=== PATIENT | male | born 1980 | race Caucasian/White ===

== ENCOUNTER 2021-05-10 18:24 | Emergency (ER) | payer SELFPAY ==
[~2021-05-10] VITALS: Ht 182 cm; Wt 102.0 kg
[2021-05-10 18:47] VITALS: BP 145/95
[2021-05-10] MEDS ORDERED: KETOROLAC 30 MG/ML VIAL IVP ONE (19:15)
[2021-05-10] MEDS ORDERED: ORPHENADRINE 60 MG/2 ML (NORFLEX) AMP (ED ONLY) IV ONE (19:15)
--- NOTE | 2021-05-10 19:19 | ED Back Pain ---
General Chief Complaint: Back Problems Stated Complaint: LOW BACK PAIN Nursing Triage Note: PT CO OF LOW BACK PAIN FOR 2 DAYS RATES PAIN10/10. PT STATES ALSO HAS L SIDED ABD PAIN FOR 6 MONTHS. Source of Information: Patient Exam Limitations: No Limitations History of Present Illness Date Seen by Provider: May 10, 2021 Time Seen by Provider: 19:17 Initial Comments To ER with mid thoracic back pain for 2 days that does not radiate. No known injury no cough no shortness of breath. He also has left upper abdominal pain for 6 months no known injury. No bowel changes no urinary symptoms no nausea no vomiting no fever no chills. Has not yet sought care for this. 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 Location: [facility] Timing/Duration: 1-2 Days Severity: Moderate Pain/Injury Location: None Method of Injury: Unknown Associated Symptoms: denies symptoms Allergies and Home Medications Allergies Coded Allergies: No Known Drug Allergies (Unverified , 05/10/21) Patient Home Medication List Home Medication List Reviewed: Yes Review of Systems Constitutional: see HPI EENTM: see HPI Respiratory: no symptoms reported Cardiovascular: no symptoms reported Genitourinary: no symptoms reported Musculoskeletal: see HPI, back pain Skin: no symptoms reported Psychiatric/Neurological: No Symptoms Reported Past Qcoxnue-Qdlgmc-Mutxzq Hx Patient Social History Tobacco Use?: No Substance use?: No Alcohol Use?: No Pt feels they are or have been: No Physical Exam Vital Signs Vital Signs - First Documented 05/10/21 18:47 Temp 36.6 Pulse 82 Resp 18 B/P (MAP) 145/95 (112) Pulse Ox 97 Capillary Refill : Less Than 3 Seconds Height, Weight, BMI Height: '" Weight: lbs. oz. kg; 30.00 BMI Method: General Appearance: No Apparent Distress, WD/WN, Chronically ill, Obese HEENT: PERRL/EOMI, TMs Normal Neck: Full Range of Motion, Normal Inspection Respiratory: No Accessory Muscle Use, No Respiratory Distress Gastrointestinal: Normal Bowel Sounds, Non Tender, Soft Extremity: Normal Capillary Refill Neurologic/Psychiatric: Alert, Oriented x3 Skin: Normal Color, Warm/Dry Progress/Results/Core Measures Results/Orders Lab Results Laboratory Tests Test 05/10/21 19:45 05/10/21 20:06 Range/Units White Blood Count 9.5 4.3-11.0 10^3/uL Red Blood Count 5.05 4.30-5.52 10^6/uL Hemoglobin 15.4 13.3-17.7 g/dL Hematocrit 46 40-54 % Mean Corpuscular Volume 91 80-99 fL Mean Corpuscular Hemoglobin 31 25-34 pg Mean Corpuscular Hemoglobin Concent 34 32-36 g/dL Red Cell Distribution Width 12.3 10.0-14.5 % Platelet Count 314 130-400 10^3/uL Mean Platelet Volume 10.0 9.0-12.2 fL Immature Granulocyte % (Auto) 1 % Neutrophils (%) (Auto) 64 42-75 % Lymphocytes (%) (Auto) 24 12-44 % Monocytes (%) (Auto) 8 0-12 % Eosinophils (%) (Auto) 3 0-10 % Basophils (%) (Auto) 1 0-10 % Neutrophils # (Auto) 6.1 1.8-7.8 10^3/uL Lymphocytes # (Auto) 2.3 1.0-4.0 10^3/uL Monocytes # (Auto) 0.8 0.0-1.0 10^3/uL Eosinophils # (Auto) 0.3 0.0-0.3 10^3/uL Basophils # (Auto) 0.1 0.0-0.1 10^3/uL Immature Granulocyte # (Auto) 0.1 0.0-0.1 10^3/uL Sodium Level 139 135-145 MMOL/L Potassium Level 4.1 3.6-5.0 MMOL/L Chloride Level 102 98-107 MMOL/L Carbon Dioxide Level 27 21-32 MMOL/L Anion Gap 10 5-14 MMOL/L Blood Urea Nitrogen 15 7-18 MG/DL Creatinine 1.05 0.60-1.30 MG/DL Estimat Glomerular Filtration Rate 79 BUN/Creatinine Ratio 14 Glucose Level 128 H 70-105 MG/DL Calcium Level 9.9 8.5-10.1 MG/DL Corrected Calcium 9.8 8.5-10.1 MG/DL Total Bilirubin 0.3 0.1-1.0 MG/DL Aspartate Amino Transf (AST/SGOT) 19 5-34 U/L Alanine Aminotransferase (ALT/SGPT) 30 0-55 U/L Alkaline Phosphatase 128 40-136 U/L Total Protein 7.6 6.4-8.2 GM/DL Albumin 4.1 3.2-4.5 GM/DL Lipase 31 8-78 U/L Urine Color YELLOW Urine Clarity CLEAR Urine pH 7.0 5-9 Urine Specific [place] 1.020 1.016-1.022 Urine Protein NEGATIVE NEGATIVE Urine Glucose (UA) NEGATIVE NEGATIVE Urine Ketones NEGATIVE NEGATIVE Urine Nitrite NEGATIVE NEGATIVE Urine Bilirubin NEGATIVE NEGATIVE Urine Urobilinogen 0.2 < = 1.0 MG/DL Urine Leukocyte Esterase NEGATIVE NEGATIVE Urine RBC (Auto) NEGATIVE NEGATIVE Urine RBC NONE /HPF Urine WBC NONE /HPF Urine Crystals PRESENT H /LPF Urine Amorphous Sediment MOD LUCIANA PHOSPHATE H /LPF Urine Bacteria TRACE /HPF Urine Casts NONE /LPF Urine Mucus NEGATIVE /LPF Urine Culture Indicated NO My Orders Orders - REAGAN TABARES APRN Cbc With Automated Diff (05/10/21 19:15) Comprehensive Metabolic Panel (05/10/21 19:15) Ua Culture If Indicated (05/10/21 19:15) Ed Iv/Invasive Line Start (05/10/21 19:15) Chest 1 View, Ap/Pa Only (05/10/21 19:15) Lipase (05/10/21 19:15) Ct Abdomen/Pelvis W (05/10/21 19:15) Ketorolac Injection (Toradol Injection) (05/10/21 19:15) Orphenadrine Inj (Ed Only) (Norflex Inje (05/10/21 19:15) Iohexol Injection (Omnipaque 350 Mg/Ml 1 (05/10/21 19:45) Received Contrast (Hold Metformin- Contr (05/10/21 19:45) Ns (Ivpb) (Sodium Chloride 0.9% Ivpb Bag (05/10/21 19:45) Ondansetron Injection (Zofran Injectio (05/10/21 19:45) Antacid Suspension (Mylanta Suspension (05/10/21 20:00) Lidocaine 2% Viscous 15 Ml (Xylocaine Vi (05/10/21 20:00) Medications Given in ED Current Medications Medications Dose Ordered Sig/Alessia Route Start Time Stop Time Status Last Admin Dose Admin Al Hydrox/Mg Hydrox/Simethicone 30 ml ONCE ONCE PO 05/10/21 20:00 05/10/21 20:01 DC 05/10/21 19:54 30 ML Iohexol 100 ml ONCE ONCE IV 05/10/21 19:45 05/10/21 19:46 DC 05/10/21 20:11 100 ML Ketorolac Tromethamine 15 mg ONCE ONCE IVP 05/10/21 19:15 05/10/21 19:17 DC 05/10/21 19:58 15 MG Lidocaine HCl 15 ml ONCE ONCE PO 05/10/21 20:00 05/10/21 20:01 DC 05/10/21 19:54 15 ML Ondansetron HCl 8 mg ONCE ONCE IVP 05/10/21 19:45 05/10/21 19:46 DC 05/10/21 19:55 8 MG Orphenadrine Citrate 60 mg ONCE ONCE IV 05/10/21 19:15 05/10/21 19:17 DC 05/10/21 19:58 60 MG Sodium Chloride 100 ml ONCE ONCE IV 05/10/21 19:45 05/10/21 19:46 DC 05/10/21 20:11 80 ML Vital Signs/I&O 05/10/21 18:47 Temp 36.6 Pulse 82 Resp 18 B/P (MAP) 145/95 (112) Pulse Ox 97 Blood Pressure Mean: 112 Departure Impression Primary Impression: Thoracic back pain Additional Impression: Chronic abdominal pain Disposition: HOME, SELF-CARE Condition: Stable Departure-Patient Inst. Decision time for Depature: 20:34 Referrals: NO,LOCAL PHYSICIAN (PCP/Family) Primary Care Physician Patient Instructions: Upper Back Pain (DC) Add. Discharge Instructions: . Follow-up with your regular doctor this week for recheck and further evaluation of this ongoing abdominal pain. Tylenol and ibuprofen for your back pain. All discharge instructions reviewed with patient and/or family. Voiced understanding. Images Torso/Trunk 1 - Other-See Progress Note 1 - Other-See Progress Note REAGAN TABARES SEISMOGRAPH HELPER May 10, 2021 19:19
[2021-05-10] MEDS ORDERED: ONDANSETRON 4 MG/2 ML (SDV) Z0FRAN IVP ONE (19:45)
[2021-05-10] MEDS ORDERED: IOHEXOL 350 MG/ML 100 ML (OMNIPAQUE 350) VIAL IV ONE (19:45)
[2021-05-10] MEDS ORDERED: HOLD METFORMIN - RECEIVED CONTRAST 20 ML VIAL IV SCH (19:45)
[2021-05-10] MEDS ORDERED: NS 100 ML (IVPB) BAG IV ONE (19:45)
[2021-05-10] MEDS ORDERED: ANTACID SUSP 30 ML UDC (MYLANTA) PO ONE (20:00)
[2021-05-10] MEDS ORDERED: LIDOCAINE 2% VISCOUS 15 ML UDC PO ONE (20:00)
[2021-05-10 20:02] LABS: BASOPHILS # (AUTO) 0.1 10^3/uL (0.0-0.1); BASOPHILS % (AUTO) 1 % (0-10); EOSINOPHILS # (AUTO) 0.3 10^3/uL (0.0-0.3); EOSINOPHILS % (AUTO) 3 % (0-10); HEMATOCRIT 46 % (40-54); HEMOGLOBIN 15.4 g/dL (13.3-17.7); LYMPHOCYTES # (AUTO) 2.3 10^3/uL (1.0-4.0); LYMPHOCYTES % (AUTO) 24 % (12-44); MEAN CORPUSCULAR HEMOGLOBIN 31 pg (25-34); MEAN CORPUSCULAR HGB CONC 34 g/dL (32-36); MEAN CORPUSCULAR VOLUME 91 fL (80-99); MONOCYTES # (AUTO) 0.8 10^3/uL (0.0-1.0); MONOCYTES % (AUTO) 8 % (0-12); NEUTROPHILS # (AUTO) 6.1 10^3/uL (1.8-7.8); NEUTROPHILS % (AUTO) 64 % (42-75); PLATELET COUNT 314 10^3/uL (130-400); WHITE BLOOD COUNT 9.5 10^3/uL (4.3-11.0)
[2021-05-10 20:22] LABS: BILIRUBIN,URINE NEGATIVE (NEGATIVE); CLARITY,URINE CLEAR; COLOR,URINE YELLOW; GLUCOSE, URINE (UA) NEGATIVE (NEGATIVE); KETONES,URINE NEGATIVE (NEGATIVE); LEUKOCYTE ESTERASE ,URINE NEGATIVE (NEGATIVE); NITRITE,URINE NEGATIVE (NEGATIVE); PROTEIN,URINE NEGATIVE (NEGATIVE)
[2021-05-10 20:24] LABS: ALBUMIN 4.1 GM/DL (3.2-4.5); BILIRUBIN,TOTAL 0.3 MG/DL (0.1-1.0); CALCIUM 9.9 MG/DL (8.5-10.1); CREATININE SERUM 1.05 MG/DL (0.60-1.30); POTASSIUM 4.1 MMOL/L (3.6-5.0); TOTAL PROTEIN 7.6 GM/DL (6.4-8.2)
[2021-05-10 20:30] LABS: BACTERIA,URINE TRACE /HPF
[2021-05-10 20:31] LABS: AMORPHOUS SEDIMENT,UR MOD AMOR PHOSPHATE /LPF
--- NOTE | 2021-05-10 20:35 | Diagnostic Imaging Report ---
INDICATION: Back pain. FINDINGS: The lungs are clear. There is no failure pattern, effusion or pneumothorax. The visualized bowel gas pattern normal. No free air beneath the diaphragms. IMPRESSION: Unremarkable frontal chest. Dictated by: Dictated on workstation # [id number]
--- NOTE | 2021-05-10 20:47 | Diagnostic Imaging Report ---
PROCEDURE: CT abdomen and pelvis with contrast. TECHNIQUE: Multiple contiguous axial images were obtained through the abdomen and pelvis after administration of intravenous contrast. Auto Exposure Controls were utilized during the CT exam to meet ALARA standards for radiation dose reduction. All CT scans use one or more of the following dose optimizing techniques: automated exposure control, MA and/or KvP adjustment based on patient size and exam type or iterative reconstruction. INDICATION: Left-sided pain. Symptoms of six months duration. COMPARISON: None. FINDINGS: Liver, gallbladder, bile ducts, spleen, adrenals and pancreas are unremarkable. There are no opaque kidney stones. There is no diverticulitis. There is no small or large bowel obstruction. No perienteric or pericolonic edema. There are no findings of appendicitis. No mesenteric or retroperitoneal adenopathy. No ascites, abscess, hematoma or acute fluid collection. No pneumatosis or free air. Prostate, seminal vesicles and urinary bladder are normal. The lung bases and the osseous structures are nonacute. IMPRESSION: Normal CT abdomen and pelvis. Dictated by: Dictated on workstation # [id number]
[2021-05-10] MEDS ORDERED: NAPR-1071 PO (21:06)
[2021-05-10] MEDS ORDERED: METH-732 PO (21:06)
== END 2021-05-10 21:08 | disposition home or self-care (01) ==
LOC: ER 18:27
DX: G89.29 Other chronic pain (principal); M54.6 Pain in thoracic spine; R10.12 Left upper quadrant pain; E66.9 Obesity, unspecified; Z68.30 Body mass index [BMI] 30.0-30.9, adult
CPT/HCPCS: 36415; 71045; 74177; 80053; 81000; 83690; 85025

== ENCOUNTER 2021-06-17 17:18 | Emergency (ER) | payer SELFPAY ==
[~2021-06-17] VITALS: Ht 182 cm; Wt 100.0 kg
[~2021-06-17 17:18] MED LIST: METH-732 PO; NAPR-1071 PO
--- NOTE | 2021-06-17 18:19 | ED Abdominal Pain ---
General Chief Complaint: Abdominal/GI Problems Stated Complaint: DIARREAH, VOMITING, SOB, L KNEE PAIN Nursing Triage Note: NVD FOR 2 DAYS, VOMITED LAST NIGHT, DIARRHEA AT 1500. HAS LT KNEE PAIN FROM TORN ACL REPAIR FOR 2 MONTHS. Source of Information: Patient Exam Limitations: No Limitations History of Present Illness Date Seen by Provider: Jun 17, 2021 Time Seen by Provider: 18:19 Initial Comments to ER with a 3-day history of nausea vomiting diarrhea. Also has left knee pain for 2 months no known injury. History of left knee ACL repair in 1998. Was supposed to have a checkup in 2000 but never got around to it. Timing/Duration: 1-2 Days Severity/Quality: Cramping Location: Generalized Abdomen Radiation: No Radiation Activities at Onset: None Associated Symptoms: Nausea/Vomiting Allergies and Home Medications Allergies Coded Allergies: No Known Drug Allergies (Unverified , 05/10/21) Patient Home Medication List Home Medication List Reviewed: Yes Methocarbamol (Methocarbamol) 750 Mg Tablet, 750 MG PO Q6-8HR Prescribed by: REAGAN TABARES on 05/10/212105 Naproxen (Naprosyn) 500 Mg Tablet, 500 MG PO BID PRN for PAIN-SEVERE (8-10) Prescribed by: REAGAN TABARES on 05/10/212105 Review of Systems Review of Systems Constitutional: see HPI EENTM: No Symptoms Reported Respiratory: No Symptoms Reported Cardiovascular: No Symptoms Reported Gastrointestinal: See HPI, Abdominal Pain, Diarrhea, Nausea, Vomiting Genitourinary: No Symptoms Reported Musculoskeletal: no symptoms reported Skin: no symptoms reported Psychiatric/Neurological: No Symptoms Reported Endocrine: No Symptoms Reported Hematologic/Lymphatic: No Symptoms Reported Physical Exam Vital Signs Vital Signs - First Documented 06/17/21 18:09 Temp 36.7 Pulse 79 Resp 18 B/P (MAP) 143/95 (111) Pulse Ox 97 O2 Delivery Room Air Capillary Refill : Less Than 3 Seconds Height/Weight/BMI Height: '" Weight: lbs. oz. kg; 30.00 BMI Method: General Appearance: WD/WN, no apparent distress HEENT: PERRL/EOMI, normal ENT inspection Neck: non-tender, full range of motion Respiratory: no respiratory distress, no accessory muscle use Cardiovascular: regular rate, rhythm, no murmur Gastrointestinal: normal bowel sounds, non tender, soft Extremities: normal range of motion, non-tender, other (knee has a normal appearance without effusion or erythema) Neurologic/Psychiatric: alert, normal mood/affect, oriented x 3 Skin: normal color, warm/dry Progress/Results/Core Measures Results/Orders Lab Results Laboratory Tests Test 06/17/21 18:18 06/17/21 18:21 Range/Units White Blood Count 9.5 4.3-11.0 10^3/uL Red Blood Count 4.90 4.30-5.52 10^6/uL Hemoglobin 14.8 13.3-17.7 g/dL Hematocrit 44 40-54 % Mean Corpuscular Volume 90 80-99 fL Mean Corpuscular Hemoglobin 30 25-34 pg Mean Corpuscular Hemoglobin Concent 34 32-36 g/dL Red Cell Distribution Width 12.4 10.0-14.5 % Platelet Count 315 130-400 10^3/uL Mean Platelet Volume 9.6 9.0-12.2 fL Immature Granulocyte % (Auto) 1 % Neutrophils (%) (Auto) 65 42-75 % Lymphocytes (%) (Auto) 20 12-44 % Monocytes (%) (Auto) 10 0-12 % Eosinophils (%) (Auto) 4 0-10 % Basophils (%) (Auto) 1 0-10 % Neutrophils # (Auto) 6.1 1.8-7.8 10^3/uL Lymphocytes # (Auto) 1.9 1.0-4.0 10^3/uL Monocytes # (Auto) 0.9 0.0-1.0 10^3/uL Eosinophils # (Auto) 0.3 0.0-0.3 10^3/uL Basophils # (Auto) 0.1 0.0-0.1 10^3/uL Immature Granulocyte # (Auto) 0.1 0.0-0.1 10^3/uL Sodium Level 141 135-145 MMOL/L Potassium Level 3.9 3.6-5.0 MMOL/L Chloride Level 106 98-107 MMOL/L Carbon Dioxide Level 25 21-32 MMOL/L Anion Gap 10 5-14 MMOL/L Blood Urea Nitrogen 12 7-18 MG/DL Creatinine 1.01 0.60-1.30 MG/DL Estimat Glomerular Filtration Rate 82 BUN/Creatinine Ratio 12 Glucose Level 97 70-105 MG/DL Calcium Level 9.4 8.5-10.1 MG/DL Corrected Calcium 9.4 8.5-10.1 MG/DL Total Bilirubin 0.3 0.1-1.0 MG/DL Aspartate Amino Transf (AST/SGOT) 21 5-34 U/L Alanine Aminotransferase (ALT/SGPT) 30 0-55 U/L Alkaline Phosphatase 107 40-136 U/L Total Protein 7.2 6.4-8.2 GM/DL Albumin 4.0 3.2-4.5 GM/DL Lipase 26 8-78 U/L SARS-CoV-2 RNA (RT-PCR) Not Detected Not Detecte My Orders Orders - REAGAN TABARES APRN Cbc With Automated Diff (06/17/21 18:14) Comprehensive Metabolic Panel (06/17/21 18:14) Lipase (06/17/21 18:14) Ed Iv/Invasive Line Start (06/17/21 18:14) Covid 19 Inhouse Test (06/17/21 18:14) Knee, Left, 3 Views (06/17/21 18:16) Ketorolac Injection (Toradol Injection) (06/17/21 18:30) Lactated Ringers (Lr 1000 Ml Iv Solution (06/17/21 18:30) Ondansetron Injection (Zofran Injectio (06/17/21 18:30) Chest 1 View, Ap/Pa Only (06/17/21 18:31) Medications Given in ED Current Medications Medications Dose Ordered Sig/Alessia Route Start Time Stop Time Status Last Admin Dose Admin Ketorolac Tromethamine 15 mg ONCE ONCE IVP 06/17/21 18:30 06/17/21 18:31 DC 06/17/21 18:28 15 MG Ondansetron HCl 4 mg ONCE ONCE IVP 06/17/21 18:30 06/17/21 18:31 DC 06/17/21 18:27 4 MG Vital Signs/I&O 06/17/21 06/17/21 18:09 18:28 Temp 36.7 36.7 Pulse 79 Resp 18 B/P (MAP) 143/95 (111) Pulse Ox 97 O2 Delivery Room Air Blood Pressure Mean: 111 Departure Impression Primary Impression: Viral syndrome Disposition: 01 HOME, SELF-CARE Condition: Stable Departure-Patient Inst. Decision time for Depature: 19:09 Referrals: NO,LOCAL PHYSICIAN (PCP/Family) Primary Care Physician Patient Instructions: Viral Syndrome (DC) Add. Discharge Instructions: 1. Follow-up with primary care for further evaluation of your chronic knee pain. Return to ER for any concerns. You can use [id number] Imodium for diarrhea. All discharge instructions reviewed with patient and/or family. Voiced understanding. Work/School Note: Work Release Form Date Seen in the Emergency Department: Jun 17, 2021 Return to Work: Jun 19, 2021 REAGAN TABARES APRN Jun 17, 2021 18:19
[2021-06-17] MEDS ORDERED: KETOROLAC 30 MG/ML VIAL IVP ONE (18:30)
[2021-06-17] MEDS ORDERED: ONDANSETRON 4 MG/2 ML (SDV) Z0FRAN IVP ONE (18:30)
[2021-06-17] MEDS ORDERED: LACTATED RINGERS 1,000 ML IV SCH (18:30)
[2021-06-17 18:32] LABS: BASOPHILS # (AUTO) 0.1 10^3/uL (0.0-0.1); BASOPHILS % (AUTO) 1 % (0-10); EOSINOPHILS # (AUTO) 0.3 10^3/uL (0.0-0.3); EOSINOPHILS % (AUTO) 4 % (0-10); HEMATOCRIT 44 % (40-54); HEMOGLOBIN 14.8 g/dL (13.3-17.7); LYMPHOCYTES # (AUTO) 1.9 10^3/uL (1.0-4.0); LYMPHOCYTES % (AUTO) 20 % (12-44); MEAN CORPUSCULAR HEMOGLOBIN 30 pg (25-34); MEAN CORPUSCULAR HGB CONC 34 g/dL (32-36); MEAN CORPUSCULAR VOLUME 90 fL (80-99); MEAN PLATELET VOLUME 9.6 fL (9.0-12.2); MONOCYTES # (AUTO) 0.9 10^3/uL (0.0-1.0); MONOCYTES % (AUTO) 10 % (0-12); NEUTROPHILS # (AUTO) 6.1 10^3/uL (1.8-7.8); NEUTROPHILS % (AUTO) 65 % (42-75); PLATELET COUNT 315 10^3/uL (130-400); WHITE BLOOD COUNT 9.5 10^3/uL (4.3-11.0)
[2021-06-17 18:55] LABS: POTASSIUM 3.9 MMOL/L (3.6-5.0)
[2021-06-17 18:56] LABS: CALCIUM 9.4 MG/DL (8.5-10.1)
[2021-06-17 18:57] LABS: TOTAL PROTEIN 7.2 GM/DL (6.4-8.2)
[2021-06-17 18:59] LABS: BILIRUBIN,TOTAL 0.3 MG/DL (0.1-1.0)
[2021-06-17 19:00] LABS: CREATININE SERUM 1.01 MG/DL (0.60-1.30)
--- NOTE | 2021-06-17 19:01 | Diagnostic Imaging Report ---
INDICATION: Shortness of breath. Frontal chest obtained at 6:43 p.m. and compared to 05/10/2021. Heart and mediastinal silhouette are normal in appearance. The lungs are clear. There is no pneumothorax or pleural fluid. IMPRESSION: Negative chest. Dictated by: Dictated on workstation # [id number]
--- NOTE | 2021-06-17 19:01 | Diagnostic Imaging Report ---
INDICATION: Left knee pain AP and lateral views of the left knee and oblique views are obtained at 6:40 p.m. There is hardware in place in configuration of previous ACL repair. There is no acute fracture or acute bony abnormality. Joint spaces appear unremarkable. There is no definitive joint effusion. IMPRESSION: Postop changes status post ACL repair. No acute appearing abnormality. Dictated by: Dictated on workstation # [id number]
[2021-06-17 19:17] VITALS: BP 132/87
== END 2021-06-17 19:20 | disposition home or self-care (01) ==
LOC: EDUNIT# 17:18 → ER 17:20
DX: B34.9 Viral infection, unspecified (principal); Z20.822 Contact with and (suspected) exposure to COVID-19
CPT/HCPCS: 36415; 71045; 73562; 80053; 83690; 85025; 87636

== ENCOUNTER 2021-09-26 16:08 | Emergency (ER) | payer SELFPAY ==
[~2021-09-26] VITALS: Ht 183 cm; Wt 100.0 kg
[2021-09-26 16:11] VITALS: BP 128/87
--- NOTE | 2021-09-26 16:25 | ED Lower Extremity ---
General Chief Complaint: Lower Extremity Stated Complaint: L FOOT PAIN Nursing Triage Note: PT AMB TO FT 2 W C/O LEFT ANKLE PAIN SX TUESDAY. PT DENIES INJURY, PAIN WORSE W AMBULATION. A&OX4. Source: patient Exam Limitations: no limitations History of Present Illness Date Seen by Provider: Sep 26, 2021 Time Seen by Provider: 16:20 Initial Comments Ambulatory into ER by private vehicle from home with reports of pain to the left first MTP joint and left medial malleolus. Symptoms began 48 hours ago without any known injury. No redness or swelling no history of this. Onset: just prior to arrival Severity: moderate Pain/Injury Location: left ankle, left 1st toe Method of Injury: unknown Modifying Factors: Worse With Movement Allergies and Home Medications Allergies Coded Allergies: No Known Drug Allergies (Unverified , 05/10/21) Patient Home Medication List Home Medication List Reviewed: Yes Methocarbamol (Methocarbamol) 750 Mg Tablet, 750 MG PO Q6-8HR Prescribed by: REAGAN TABARES on 05/10/212105 Methylprednisolone (Methylprednisolone Dose Pack) 4 Mg Tab.ds.pk, 4 MG PO UD Prescribed by: REAGAN TABARES on 09/26/211627 Naproxen (Naprosyn) 500 Mg Tablet, 500 MG PO BID PRN for PAIN-SEVERE (8-10) Prescribed by: REAGAN TABARES on 05/10/212105 Review of Systems Constitutional: see HPI EENTM: see HPI Respiratory: no symptoms reported Cardiovascular: no symptoms reported Genitourinary: no symptoms reported Musculoskeletal: see HPI Skin: no symptoms reported Psychiatric/Neurological: No Symptoms Reported Past Pxjkmit-Lwlgkx-Srlzwj Hx Patient Social History Tobacco Use?: No Use of E-Cig and/or Vaping dev: No Substance use?: No Alcohol Use?: No Immunizations Up To Date Influenza Vaccine Up-to-Date: Yes; Up-to-Date First/Initial COVID19 Vaccinat: 12/2020 Second COVID19 Vaccination Bakari: 12/2020 Third COVID19 Vaccination Date: 12/2020 Physical Exam Vital Signs Vital Signs - First Documented 09/26/21 16:11 Temp 36.5 Pulse 87 Resp 20 B/P (MAP) 128/87 (101) Pulse Ox 98 O2 Delivery Room Air Capillary Refill : Less Than 3 Seconds Height, Weight, BMI Height: '" Weight: lbs. oz. kg; 29.00 BMI Method: General Appearance: WD/WN, no apparent distress HEENT: PERRL/EOMI, normal ENT inspection Neck: non-tender, full range of motion Respiratory: no respiratory distress, no accessory muscle use Gastrointestinal: normal bowel sounds, non tender Hips: bilateral hip non-tender, bilateral hip normal inspection, bilateral hip normal range of motion Legs: bilateral leg non-tender, bilateral leg normal inspection, bilateral leg normal range of motion Knees: bilateral knee non-tender, bilateral knee normal inspection, bilateral knee normal range of motion Ankles: right ankle non-tender; bilateral ankle normal inspection, bilateral ankle normal range of motion; left ankle other Feet: left foot other (Tender to palpation over the left first MTP joint. No erythema or swelling. No ecchymosis no open wounds. Pain is worsened by plantar flexion of the toe at this joint.) Neurologic/Psychiatric: alert, normal mood/affect, oriented x 3 Skin: normal color, warm/dry Progress/Results/Core Measures Results/Orders My Orders Orders - REAGAN TABARES APRN Foot, Left, 3 Views (09/26/21 16:19) Ankle, Left, 3 Views (09/26/21 16:19) Ibuprofen Tablet (Motrin Tablet) (09/26/21 16:30) Medications Given in ED Current Medications Medications Dose Ordered Sig/Alessia Route Start Time Stop Time Status Last Admin Dose Admin Ibuprofen 800 mg ONCE ONCE PO 09/26/21 16:30 09/26/21 16:31 DC 09/26/21 16:24 800 MG Vital Signs/I&O 09/26/21 16:11 Temp 36.5 Pulse 87 Resp 20 B/P (MAP) 128/87 (101) Pulse Ox 98 O2 Delivery Room Air Blood Pressure Mean: 101 Departure Impression Primary Impression: Polyarthritis involving foot Disposition: 01 HOME, SELF-CARE Condition: Stable Departure-Patient Inst. Decision time for Depature: 16:26 Referrals: NO,LOCAL PHYSICIAN (PCP) Primary Care Physician Patient Instructions: NO INSTRUCTIONS GIVEN Add. Discharge Instructions: 1. Take the steroid medication as directed. Return to ER for any concerns. Follow-up with your doctor next week. All discharge instructions reviewed with patient and/or family. Voiced understanding. Scripts Methylprednisolone (Methylprednisolone Dose Pack) 4 Mg Tab.ds.pk 4 MG PO UD for 6 Days, #21 PKG PER DOSE PACK INSTRUCTIONS Prov: REAGAN TABARES APRN 09/26/21 Work/School Note: Work Release Form Date Seen in the Emergency Department: Sep 26, 2021 Return to Work: Sep 28, 2021 REAGAN TABARES APRN Sep 26, 2021 16:25
[2021-09-26] MEDS ORDERED: METH4TAB10 PO (16:28)
[2021-09-26] MEDS ORDERED: IBUPROFEN 800 MG (MOTRIN) TAB PO ONE (16:30)
--- NOTE | 2021-09-26 16:43 | Diagnostic Imaging Report ---
INDICATION: Medial pain. FINDINGS: Three views of the left ankle shows no fracture dislocation or acute articular irregularity. No widening of the ankle mortise. No fracture identified. IMPRESSION: Unremarkable three view ankle. Dictated by: Dictated on workstation # [id number]
--- NOTE | 2021-09-26 16:44 | Diagnostic Imaging Report ---
HISTORY: Pain in the 1st MTP, no known injury. TECHNIQUE: 3 views of the left foot. COMPARISON: None. FINDINGS: No acute fracture or dislocation is seen in the left foot. Alignment appears normal. Joint spaces are preserved. No cortical erosions are seen. There is a small plantar calcaneal enthesophyte. IMPRESSION: No acute osseous abnormality seen in the left foot. Dictated by: Dictated on workstation # [id number]
== END 2021-09-26 17:08 | disposition home or self-care (01) ==
LOC: EDUNIT# 16:08 → ER 16:09
DX: M13.0 Polyarthritis, unspecified (principal)
CPT/HCPCS: 73610; 73630

== ENCOUNTER 2021-11-22 19:03 | Emergency (ER) | payer SELFPAY ==
[~2021-11-22] VITALS: Ht 183 cm; Wt 104.3 kg
[~2021-11-22 19:03] MED LIST changes: +METH4TAB10 PO
[2021-11-22] MEDS ORDERED: HYDR25SU5 RC (21:38)
--- NOTE | 2021-11-22 21:39 | ED General ---
General Chief Complaint: Rect Problems Stated Complaint: BLOOD IN STOOL Nursing Triage Note: C/O RECTAL BLEEDING (DEEDEE ROWE) History of Present Illness Date Seen by Provider: Nov 22, 2021 Time Seen by Provider: 20:55 Initial Comments 41-year-old male reports a 2-week history of rectal bleeding related to stools. He has previously been told of hemorrhoids. He is out of his stool softener. He denies previous colonoscopy or seeing a general surgeon for the hemorrhoids. He has not maintain the restrictions of limiting his lifting. He notes bright red blood in the stools and occasionally in the toilet or when wiping. It does not occur at every instance. Timing/Duration: Intermittent Severity: Mild Associated Systoms: Denies Symptoms (DEEDEE ROWE) Allergies and Home Medications Allergies Coded Allergies: No Known Drug Allergies (Unverified , 05/10/21) Patient Home Medication List Home Medication List Reviewed: Yes (DEEDEE ROWE) Hydrocortisone Acetate (Hydrocortisone Acetate) 25 Mg Supp.rect, 25 MG RC Q8H PRN for PAIN-MILD (1-4) Prescribed by: DEEDEE ROWE on 11/22/212137 Discontinued Medications Methocarbamol (Methocarbamol) 750 Mg Tablet, 750 MG PO Q6-8HR Discontinued Reason: No Longer Taking Prescribed by: REAGAN TABARES on 05/10/212105 Last Action: Discontinued Methylprednisolone (Methylprednisolone Dose Pack) 4 Mg Tab.ds.pk, 4 MG PO UD Discontinued Reason: No Longer Taking Prescribed by: REAGAN TABARES on 09/26/21 1628 Last Action: Discontinued Naproxen (Naprosyn) 500 Mg Tablet, 500 MG PO BID PRN for PAIN-SEVERE (8-10) Discontinued Reason: No Longer Taking Prescribed by: REAGAN TABARES on 05/10/212105 Last Action: Discontinued Review of Systems Review of Systems Constitutional: no symptoms reported, see HPI Gastrointestinal: see HPI, melena, other (Hemorrhoids) (DEEDEE ROWE) All Other Systems Reviewed Negative Unless Noted: Yes (DEEDEE ROWE) Past Zpxejzi-Sdmejy-Estfto Hx Patient Social History Tobacco Use?: No Substance use?: No Alcohol Use?: No Pt feels they are or have been: No (DEEDEE ROWE) Immunizations Up To Date First/Initial COVID19 Vaccinat: 12/2020 Second COVID19 Vaccination Bakari: 12/2020 Third COVID19 Vaccination Date: 12/2020 (DEEDEE ROWEP) Past Medical History Surgery/Hospitalization HX: LEFT KNEE, HEMORRHOIDS (DEEDEE ROWEP) Family Medical History Reviewed Nursing Family Hx (DEEDEE ROWE) Physical Exam Vital Signs Vital Signs - First Documented 11/22/21 20:51 Temp 36.8 Pulse 79 Resp 16 B/P (MAP) 147/92 (110) Pulse Ox 98 O2 Delivery Room Air (DEMARIO,DIETER K DO) Vital Signs Capillary Refill : Less Than 3 Seconds (DEEDEE ROWE VIOLA) Height, Weight, BMI Height: '" Weight: lbs. oz. kg; 31.00 BMI Method: General Appearance: No Apparent Distress, WD/WN Neck: Full Range of Motion, Normal Inspection, Non Tender, Supple Respiratory: Chest Non Tender, Lungs Clear, Normal Breath Sounds Cardiovascular: Regular Rate, Rhythm, Normal Peripheral Pulses Gastrointestinal: Normal Bowel Sounds, Non Tender, Soft Rectal: Deferred (Per patient request. Requested male provider, both MANUFACTURING ADVISOR and Physician female. ) Neurologic/Psychiatric: Alert, Oriented x3, No Motor/Sensory Deficits, Normal Mood/Affect (DEEDEE ROWE VIOLA) Progress/Results/Core Measures Suspected Sepsis SIRS Temperature: Pulse: 79 Respiratory Rate: 16 Blood Pressure 147 /92 Mean: 110 (DEEDEE ROWE VIOLA) Results/Orders Vital Signs/I&O 11/22/21 11/22/21 20:51 21:57 Temp 36.8 36.5 Pulse 79 67 Resp 16 16 B/P (MAP) 147/92 (110) 137/84 Pulse Ox 98 99 O2 Delivery Room Air Room Air (DEMARIO,DIETER K DO) Vital Signs/I&O Capillary Refill : Less Than 3 Seconds (DEEDEE ROWE VIOLA) Blood Pressure Mean: 110 Departure Impression Primary Impression: Hemorrhoids Qualified Codes: K64.9 - Unspecified hemorrhoids Disposition: HOME, SELF-CARE Condition: Improved Departure-Patient Inst. Decision time for Depature: 21:30 (DEEDEE ROWE) Referrals: NO,LOCAL PHYSICIAN (PCP/Family) Primary Care Physician Patient Instructions: Hemorrhoids (DC) Add. Discharge Instructions: Increase water intake in diet, avoid heavy lifting. Over the counter stool softener. Apply Tucks pads. Use the medications as prescribed. Warm compresses to rectal area, to assist with hemorrhoids. Schedule appointment with a general surgeon in [facility], for treatment of hemorrhoids. Return to the emergency department for new, urgent healthcare needs. All discharge instructions reviewed with patient and/or family. Voiced understanding. Scripts Hydrocortisone Acetate (Hydrocortisone Acetate) 25 Mg Supp.rect 25 MG RC Q8H PRN for PAIN-MILD (1-4), #21 SUPP.RECT 0 Refills Prov: DEEDEE ROWE 11/22/21 ATTENDING PHYSICIAN NOTE: I WAS PHYSICALLY PRESENT ER PHYSICIAN, BUT I WAS NOT INVOLVED IN ANY DECISION MAKING OR ANY CARE OF THIS PATIENT. (DIETER HANKS DO) DEEDEE ROWE Nov 22, 2021 21:39 DIETER HANKS DO Nov 23, 2021 02:04
[2021-11-22 21:57] VITALS: BP 137/84
== END 2021-11-22 21:58 | disposition home or self-care (01) ==
LOC: EDUNIT# 19:03 → ER 19:05
DX: K64.9 Unspecified hemorrhoids (principal)
CPT/HCPCS: 99281

== ENCOUNTER 2023-06-15 10:25 | Outpatient (CLI) | payer OTHER ==
[~2023-06-15] VITALS: Ht 182.9 cm; Wt 92.5 kg
[~2023-06-15 10:25] MED LIST changes: +HYDR25SU5 RC
== END 2023-06-15 14:22 | disposition home or self-care (01) ==
LOC: PREOP 10:25
PROVIDERS: ATTEND Surgery
DX: Z01.818 Encounter for other preprocedural examination (principal)